=== PATIENT | female | born 1995 | race Caucasian/White ===

== ENCOUNTER 2016-08-01 08:40 | Emergency (ER) | payer OTHER ==
[2016-08-01] MEDS ORDERED: ONDANSETRON 4 MG ORAL DISINTEGRATING TAB (S0181) As Ordered ONE (09:09)
--- NOTE | 2016-08-01 09:53 | EDDOCDS ---
Nurse's Notes [facility] Name: Sandie Nelson Age: 20 yrs Sex: Female : 1995 Arrival Date: 08/01/2016 Time: 08:40 Bed PD Private MD: No Pcp Diagnosis: Nausea and vomiting-likely viral gastroenteritis Presentation: 08/01 08:43 Presenting complaint: Patient states: vomited this AM and 'feels horrible'. Adult kr3 Sepsis Screening: The patient does not have new or worsening altered mentation. Patient's respiratory rate is less than 22. Systolic blood pressure is greater than 100. Patient has a qSOFA score of 0- Negative Sepsis Screen. Suicide/Homicide risk assessment- the patient denies having any suicidal and/or homicidal ideations and does not present with any other emotional, behavioral or mental health complaints. Status: The patient is a dependent. Transition of care: patient was not received from another setting of care. 08:43 Acuity: ELISABET Level 3 kr3 08:43 Method Of Arrival: Walkin/Carried/Asstd kr3 Triage Assessment: 08:48 General: Appears in no apparent distress, comfortable, Behavior is cooperative. Pain: kr3 Location: abdomen Pain currently is 5 out of 10 on a pain scale. Pt Declines HIV testing. Neurological: Level of Consciousness is awake, alert. Respiratory: Respiratory effort is even, unlabored. GI: Reports nausea, vomiting, Denies constipation, diarrhea. : No deficits noted. Derm: Skin is normal. 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 BCP once daily - PMHx: Allergies, Seasonal; - PSHx: Tonsillectomy; - Social history: Smoking status: Patient states was never smoker of tobacco. No barriers to communication noted, The patient speaks fluent Australian, Speaks appropriately for age. - Family history: Not pertinent. - : The pt / caregiver states he / she is not on anticoagulants. Home medication list is obtained from the patient. - Exposure Risk Screening:: None identified. Screenin:21 Screening information is obtained from the patient. Fall risk: No risks identified. kr3 Assistance ADL's: requires no assistance with activities of daily living. Abuse/DV Screen: The patient / caregiver reports he/she is: not in a situation that causes fear, pain or injury. Nutritional screening: No deficits noted. Advance Directives: Currently, there is no health care proxy. home support is adequate. Assessment: 09:20 Reassessment: Patient appears in no apparent distress at this time. Neurological: No kr3 deficits noted. Respiratory: Respiratory effort is even, unlabored. GI: Reports nausea. Derm: Skin is normal. 09:51 Reassessment: Patient states feeling better. Reassessment: tolerated apple juice. GI: kr3 Denies nausea. Vital Signs: 08:48 BP 127 / 87; Pulse 130; Resp 16; Temp 97(O); Pulse Ox 96% on R/A; Weight 63.5 kg (R); kr3 Height 5 ft. 1 in. (154.94 cm) (R); 09:51 BP 132 / 66; Pulse 104; Resp 16; Temp 97(O); Pulse Ox 97% on R/A; Pain 0/10; kr3 08:48 Body Mass Index 26.45 (63.50 kg, 154.94 cm) kr3 Vitals: 08:48 Log In Time: August 01, 2016 at 08:40. kr3 ED Course: 08:41 Patient visited by Valeriano Lynch Reg. mpb 08:41 Patient moved to Waiting mpb 08:42 No Pcp is Private Physician. mpb 08:43 Patient moved to Triage 2 kr3 08:44 Triage Initiated kr3 08:52 [facility]real [facility] ar2 08:52 Scott Mcdonald MD is Attending Physician. ar2 08:52 Patient visited by Yung Villarreal PA-C. ar2 09:08 -Influenza A&B Rapid Antigen - Nose Sent. kr3 09:15 Patient moved to PD kr3 09:21 The patient / caregiver is instructed regarding the plan of care and ED course. kr3 Accompanied by Family Member, Patient has correct armband on for positive identification. 09:21 No IV's were initiated during this patient's visit. No procedures done that require kr3 assistance. 09:23 Patient visited by Angélica Ward RN. kr3 09:25 [facility] Payment Agreement was scanned into [employer] and attached to record. mpb 09:30 Patient name changed from Sandie\S\Uziel\S\Joe\S\ to Sandie\S\Anne\S\Joe. EDMS 09:36 Patient name changed from Sandie\S\Anne\S\Joe\S\ to Sandie\S\Anne\S\Leslie. EDMS 09:44 Gerardo [facility] [place] Referral Physician. ar2 Administered Medications: 09:10 Drug: Ondansetron ODT 4 mg [ondansetron 4 mg disintegrating tablet (1 tabs)] Route: PO; kr3 09:50 Follow up: Response: Nausea is resolved kr3 Point of Care Testing: Urine : 09:20 hCG Reading: Negative; Control Reading: Positive; kr3 Ranges: Order Results: Lab Order: -Influenza A&B Rapid Antigen - Nose; SPEC'M 08/01/16 09:07 Test: INFLUENZA A RAPID SCR by ICA; Value: INFLUENZA A RESULTS NEGATIVE; Status: F Test: INFLUENZA A RAPID SCR by ICA; Value: Comments:; Status: F Test: INFLUENZA B RAPID SCR by ICA; Value: INFLUENZA B RESULTS NEGATIVE; Status: F Test Note: ; The Influenza test is a direct rapid immunoassay for the qualitative detection of Influenza viral antigen. Cell culture (Viral Culture) testing should be considered to confirm NEGATIVE results and to assist in detecting other viruses that can provide similar clinical symptoms. Please contact the lab within 24 hours ([phone]) if confirmatory testing is desired. Outcome: 09:21 No special radiology studies were completed. kr3 09:45 Discharge ordered by Provider. ar2 09:50 Discharge Assessment: patient administered narcotics - no. The following High Risk kr3 Discharge criteria are identified: None. Discharged to home ambulatory. Condition: improved. Discharge instructions given to patient, Instructed on discharge instructions, follow up and referral plans. medication usage, Demonstrated understanding of instructions, medications, Pt was receptive of discharge instructions/ teaching. Prescriptions given X 1. Property sent home with patient. 09:52 Patient left the ED. kr3 Signatures: Dispatcher [employer] EDAngélica Curtis RN RN kr3 Yung Villarreal, ABEBE PA-C ar2 Valeriano Lynch, Reg Reg mpb MTDD
--- NOTE | 2016-08-01 09:53 | EDDOCDS ---
Physician Documentation [facility] Name: Sandie Nelson Age: 20 yrs Sex: Female : 1995 Arrival Date: 08/01/2016 Time: 08:40 Bed PD Private MD: No Pcp Disposition: 08/01/16 09:45 Discharged to Home/Self Care. Impression: Nausea and vomiting - likely viral gastroenteritis. - Condition is Stable. - Discharge Instructions: Nausea and Vomiting, Viral Gastroenteritis. - Prescriptions for ZOFRAN ODT 4 mg - dissolve 1 tablet by ORAL route 4 times per day As needed do not chew, do not swallow whole; 10 tablet. - Medication Reconciliation, Local Pharmacy Hours form. - Follow up: Emergency Department; When: As needed; Reason: Fever > 102F, Worsening of conditions. Follow up: [facility]; When: As needed; Reason: Recheck today's complaints. - Problem is new. - Symptoms have improved. Historical: - Allergies: gluten intolerance; - Home Meds: 1. BCP once daily - PMHx: Allergies, Seasonal; - PSHx: Tonsillectomy; - Social history: Smoking status: Patient states was never smoker of tobacco. No barriers to communication noted, The patient speaks fluent Macedonian, Speaks appropriately for age. - Family history: Not pertinent. - : The pt / caregiver states he / she is not on anticoagulants. Home medication list is obtained from the patient. - Exposure Risk Screening:: None identified. 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 1 in. (154.94 cm) (R); 09:51 BP 132 / 66; Pulse 104; Resp 16; Temp 97(O); Pulse Ox 97% on R/A; Pain 0/10; kr3 08:48 Body Mass Index 26.45 (63.50 kg, 154.94 cm) kr3 MDM: 09:03 Ondansetron ODT Oral Disintegrating Tablet 4 mg PO once ordered. ar2 09:03 Fluid Challenge ordered. ar2 09:03 UCG by Nursing ordered. ar2 09:04 -Influenza A&B Rapid Antigen - Nose Ordered. EDMS 09:11 Financial registration complete. mpb 09:25 [facility] Payment Agreement was scanned into [employer] and attached to record. mpb 09:41 -Influenza A&B Rapid Antigen - Nose Reviewed. ar2 Point of Care Testing: Urine : 09:20 hCG Reading: Negative; Control Reading: Positive; kr3 Ranges: Administered Medications: 09:10 Drug: Ondansetron ODT 4 mg [ondansetron 4 mg disintegrating tablet (1 tabs)] Route: PO; kr3 09:50 Follow up: Response: Nausea is resolved kr3 Signatures: Dispatcher [employer] EDMS Angélica Ward RN RN kr3 Yung Villarreal PA-C PA-C ar2 Valeriano Lynch, Jake Reg mpb The chart was reviewed and I authenticate all verbal orders and agree with the evaluation and treatment provided.Attachments: 09:25 [facility] Payment Agreement mpb MTDD
--- NOTE | 2016-08-03 10:53 | EDDOCDS ---
Physician Documentation [facility] Name: Sandie Nelson Age: 20 yrs Sex: Female : 1995 Arrival Date: 08/01/2016 Time: 08:40 Bed PD Private MD: No Pcp Disposition: 08/01/16 09:45 Discharged to Home/Self Care. Impression: Nausea and vomiting - likely viral gastroenteritis. - Condition is Stable. - Discharge Instructions: Nausea and Vomiting, Viral Gastroenteritis. - Prescriptions for ZOFRAN ODT 4 mg - dissolve 1 tablet by ORAL route 4 times per day As needed do not chew, do not swallow whole; 10 tablet. - Medication Reconciliation, Local Pharmacy Hours form. - Follow up: Emergency Department; When: As needed; Reason: Fever > 102F, Worsening of conditions. Follow up: [facility]; When: As needed; Reason: Recheck today's complaints. - Problem is new. - Symptoms have improved. Historical: - Allergies: gluten intolerance; - Home Meds: 1. BCP once daily - PMHx: Allergies, Seasonal; - PSHx: Tonsillectomy; - Social history: Smoking status: Patient states was never smoker of tobacco. No barriers to communication noted, The patient speaks fluent Chinese, Speaks appropriately for age. - Family history: Not pertinent. - : The pt / caregiver states he / she is not on anticoagulants. Home medication list is obtained from the patient. - Exposure Risk Screening:: None identified. 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 1 in. (154.94 cm) (R); 09:51 BP 132 / 66; Pulse 104; Resp 16; Temp 97(O); Pulse Ox 97% on R/A; Pain 0/10; kr3 08:48 Body Mass Index 26.45 (63.50 kg, 154.94 cm) kr3 MDM: 09:03 Ondansetron ODT Oral Disintegrating Tablet 4 mg PO once ordered. ar2 09:03 Fluid Challenge ordered. ar2 09:03 UCG by Nursing ordered. ar2 09:04 -Influenza A&B Rapid Antigen - Nose Ordered. EDMS 09:11 Financial registration complete. mpb 09:25 [facility] Payment Agreement was scanned into [employer] and attached to record. mpb 09:41 -Influenza A&B Rapid Antigen - Nose Reviewed. ar2 19:58 T-Sheet-- Draft Copy was scanned into [employer] and attached to record. klr Point of Care Testing: Urine : 09:20 hCG Reading: Negative; Control Reading: Positive; kr3 Ranges: Administered Medications: 09:10 Drug: Ondansetron ODT 4 mg [ondansetron 4 mg disintegrating tablet (1 tabs)] Route: PO; kr3 09:50 Follow up: Response: Nausea is resolved kr3 Signatures: Dispatcher [employer] Angélica Tristan RN RN kr3 Yung Villarreal PA-C PA-C ar2 Valeriano Lynch, Reg Reg mpb Graciela Godoy klr The chart was reviewed and I authenticate all verbal orders and agree with the evaluation and treatment provided.Attachments: 09:25 [facility] Payment Agreement mpb 19:58 T-Sheet-- Draft Copy klr Chart Complete MTDD
--- NOTE | 2016-08-03 10:53 | EDDOCDS ---
Nurse's Notes [facility] Name: Sandie Nelson Age: 20 yrs Sex: Female : 1995 Arrival Date: 08/01/2016 Time: 08:40 Bed PD Private MD: No Pcp Diagnosis: Nausea and vomiting-likely viral gastroenteritis Presentation: 08/01 08:43 Presenting complaint: Patient states: vomited this AM and 'feels horrible'. Adult kr3 Sepsis Screening: The patient does not have new or worsening altered mentation. Patient's respiratory rate is less than 22. Systolic blood pressure is greater than 100. Patient has a qSOFA score of 0- Negative Sepsis Screen. Suicide/Homicide risk assessment- the patient denies having any suicidal and/or homicidal ideations and does not present with any other emotional, behavioral or mental health complaints. Status: The patient is a dependent. Transition of care: patient was not received from another setting of care. 08:43 Acuity: ELISABET Level 3 kr3 08:43 Method Of Arrival: Walkin/Carried/Asstd kr3 Triage Assessment: 08:48 General: Appears in no apparent distress, comfortable, Behavior is cooperative. Pain: kr3 Location: abdomen Pain currently is 5 out of 10 on a pain scale. Pt Declines HIV testing. Neurological: Level of Consciousness is awake, alert. Respiratory: Respiratory effort is even, unlabored. GI: Reports nausea, vomiting, Denies constipation, diarrhea. : No deficits noted. Derm: Skin is normal. 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 BCP once daily - PMHx: Allergies, Seasonal; - PSHx: Tonsillectomy; - Social history: Smoking status: Patient states was never smoker of tobacco. No barriers to communication noted, The patient speaks fluent [place]inean, Speaks appropriately for age. - Family history: Not pertinent. - : The pt / caregiver states he / she is not on anticoagulants. Home medication list is obtained from the patient. - Exposure Risk Screening:: None identified. Screenin:21 Screening information is obtained from the patient. Fall risk: No risks identified. kr3 Assistance ADL's: requires no assistance with activities of daily living. Abuse/DV Screen: The patient / caregiver reports he/she is: not in a situation that causes fear, pain or injury. Nutritional screening: No deficits noted. Advance Directives: Currently, there is no health care proxy. home support is adequate. Assessment: 09:20 Reassessment: Patient appears in no apparent distress at this time. Neurological: No kr3 deficits noted. Respiratory: Respiratory effort is even, unlabored. GI: Reports nausea. Derm: Skin is normal. 09:51 Reassessment: Patient states feeling better. Reassessment: tolerated apple juice. GI: kr3 Denies nausea. Vital Signs: 08:48 BP 127 / 87; Pulse 130; Resp 16; Temp 97(O); Pulse Ox 96% on R/A; Weight 63.5 kg (R); kr3 Height 5 ft. 1 in. (154.94 cm) (R); 09:51 BP 132 / 66; Pulse 104; Resp 16; Temp 97(O); Pulse Ox 97% on R/A; Pain 0/10; kr3 08:48 Body Mass Index 26.45 (63.50 kg, 154.94 cm) kr3 Vitals: 08:48 Log In Time: August 01, 2016 at 08:40. kr3 ED Course: 08:41 Patient visited by Valeriano Lynch Reg. mpb 08:41 Patient moved to Waiting mpb 08:42 No Pcp is Private Physician. mpb 08:43 Patient moved to Triage 2 kr3 08:44 Triage Initiated kr3 08:52 [facility] Vill[facility]real [facility]-C [facility]. ar2 08:52 Scott Mcdonald MD is Attending Physician. ar2 08:52 Patient visited by Yung Villarreal PA-C. ar2 09:08 -Influenza A&B Rapid Antigen - Nose Sent. kr3 09:15 Patient moved to PD kr3 09:21 The patient / caregiver is instructed regarding the plan of care and ED course. kr3 Accompanied by Family Member, Patient has correct armband on for positive identification. 09:21 No IV's were initiated during this patient's visit. No procedures done that require kr3 assistance. 09:23 Patient visited by Angélica Ward RN. kr3 09:25 [facility] Payment Agreement was scanned into [employer] and attached to record. mpb 09:30 Patient name changed from Sandie\S\Uziel\S\Joe\S\ to Sandie\S\Anne\S\Joe. EDMS 09:36 Patient name changed from Sandie\S\Anne\S\Joe\S\ to Sandie\S\Anne\S\Leslie. EDMS 09:44 Gerardo [facility] [place] Referral Physician. ar2 19:58 T-Sheet-- Draft Copy was scanned into [employer] and attached to record. klr Administered Medications: 09:10 Drug: Ondansetron ODT 4 mg [ondansetron 4 mg disintegrating tablet (1 tabs)] Route: PO; kr3 09:50 Follow up: Response: Nausea is resolved kr3 Point of Care Testing: Urine : 09:20 hCG Reading: Negative; Control Reading: Positive; kr3 Ranges: Order Results: Lab Order: -Influenza A&B Rapid Antigen - Nose; SPEC'M 08/01/16 09:07 Test: INFLUENZA A RAPID SCR by ICA; Value: INFLUENZA A RESULTS NEGATIVE; Status: F Test: INFLUENZA A RAPID SCR by ICA; Value: Comments:; Status: F Test: INFLUENZA B RAPID SCR by ICA; Value: INFLUENZA B RESULTS NEGATIVE; Status: F Test Note: ; The Influenza test is a direct rapid immunoassay for the qualitative detection of Influenza viral antigen. Cell culture (Viral Culture) testing should be considered to confirm NEGATIVE results and to assist in detecting other viruses that can provide similar clinical symptoms. Please contact the lab within 24 hours ([phone]) if confirmatory testing is desired. Outcome: 09:21 No special radiology studies were completed. kr3 09:45 Discharge ordered by Provider. ar2 09:50 Discharge Assessment: patient administered narcotics - no. The following High Risk kr3 Discharge criteria are identified: None. Discharged to home ambulatory. Condition: improved. Discharge instructions given to patient, Instructed on discharge instructions, follow up and referral plans. medication usage, Demonstrated understanding of instructions, medications, Pt was receptive of discharge instructions/ teaching. Prescriptions given X 1. Property sent home with patient. 09:52 Patient left the ED. kr3 Signatures: Dispatcher [facility] Angélica Ward RN RN kr3 Yung Villarreal PA-C PARakesh ar2 Valeriano Lynch, Reg Reg mpb Graciela Godoy Chart Complete MTDD
--- NOTE | 2016-08-03 10:53 | EDDOCDS ---
Physician Documentation [facility] Name: Sandie Nelson Age: 20 yrs Sex: Female : 1995 Arrival Date: 08/01/2016 Time: 08:40 Bed PD Private MD: No Pcp Disposition: 08/01/16 09:45 Discharged to Home/Self Care. Impression: Nausea and vomiting - likely viral gastroenteritis. - Condition is Stable. - Discharge Instructions: Nausea and Vomiting, Viral Gastroenteritis. - Prescriptions for ZOFRAN ODT 4 mg - dissolve 1 tablet by ORAL route 4 times per day As needed do not chew, do not swallow whole; 10 tablet. - Medication Reconciliation, Local Pharmacy Hours form. - Follow up: Emergency Department; When: As needed; Reason: Fever > 102F, Worsening of conditions. Follow up: [facility] Carrillo; When: As needed; Reason: Recheck today's complaints. - Problem is new. - Symptoms have improved. Historical: - Allergies: gluten intolerance; - Home Meds: 1. BCP once daily - PMHx: Allergies, Seasonal; - PSHx: Tonsillectomy; - Social history: Smoking status: Patient states was never smoker of tobacco. No barriers to communication noted, The patient speaks fluent Luxembourgish, Speaks appropriately for age. - Family history: Not pertinent. - : The pt / caregiver states he / she is not on anticoagulants. Home medication list is obtained from the patient. - Exposure Risk Screening:: None identified. 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 1 in. (154.94 cm) (R); 09:51 BP 132 / 66; Pulse 104; Resp 16; Temp 97(O); Pulse Ox 97% on R/A; Pain 0/10; kr3 08:48 Body Mass Index 26.45 (63.50 kg, 154.94 cm) kr3 MDM: 09:03 Ondansetron ODT Oral Disintegrating Tablet 4 mg PO once ordered. ar2 09:03 Fluid Challenge ordered. ar2 09:03 UCG by Nursing ordered. ar2 09:04 -Influenza A&B Rapid Antigen - Nose Ordered. EDMS 09:11 Financial registration complete. mpb 09:25 [facility] Payment Agreement was scanned into [employer] and attached to record. mpb 09:41 -Influenza A&B Rapid Antigen - Nose Reviewed. ar2 19:58 T-Sheet-- Draft Copy was scanned into [employer] and attached to record. klr Point of Care Testing: Urine : 09:20 hCG Reading: Negative; Control Reading: Positive; kr3 Ranges: Administered Medications: 09:10 Drug: Ondansetron ODT 4 mg [ondansetron 4 mg disintegrating tablet (1 tabs)] Route: PO; kr3 09:50 Follow up: Response: Nausea is resolved kr3 Signatures: Dispatcher [employer] Angélica Tristan RN RN kr3 Yung Villarreal PA-C PA-C ar2 Valeriano Lynch, Reg Reg mpb Graciela Godoy klr The chart was reviewed and I authenticate all verbal orders and agree with the evaluation and treatment provided.Attachments: 09:25 [facility] Payment Agreement mpb 19:58 T-Sheet-- Draft Copy klr Chart Complete MTDD
== END 2016-08-01 09:52 | disposition home or self-care (01) ==
LOC: M ED 08:40
DX: R11.2 Nausea with vomiting, unspecified (principal); K90.41 Non-celiac gluten sensitivity; J30.2 Other seasonal allergic rhinitis

== ENCOUNTER → 2016-11-25 | Outpatient (REF) | payer OTHER | LOC: M LAB REF 09:08 | PROVIDERS: ATTEND Physician Assistant | DX: J02.9 Acute pharyngitis, unspecified (principal) ==

== ENCOUNTER 2021-02-19 18:09 | Outpatient (CLI) | payer SELFPAY ==
[~2021-02-19] VITALS: Ht 154.9 cm; Wt 88.1 kg
[2021-02-19] MEDS ORDERED: PRENTAB9 PO (18:33)
[2021-02-19] MEDS ORDERED: FOLI400T13 PO (18:33)
[2021-02-19] MEDS ORDERED: HOME MED LIST COMPLETE! XX SCH (18:35)
[2021-02-19 18:54] LABS: HEMATOCRIT 34.2 % (36.0-47.0); HEMOGLOBIN 11.4 g/dl (12.0-15.5); MEAN CORPUSCULAR HEMOGLOBIN 29.5 pg (27.0-33.0); MEAN CORPUSCULAR HGB CONC 33.3 g/dl (32.0-36.5); MEAN CORPUSCULAR VOLUME 88.6 fl (80.0-96.0); PLATELET COUNT, AUTOMATED 188 10^3/uL (150-450); RED BLOOD COUNT 3.86 10^6/uL (4.00-5.40); WHITE BLOOD COUNT 11.2 10^3/uL (4.0-10.0)
[2021-02-19 18:55] VITALS: BP 109/62
[2021-02-19 20:20] VITALS: BP 116/55
--- NOTE | 2021-02-19 21:29 | IPNPDOC ---
Text Note Date of Service Item Value Date Time White Blood Count 11.2 10^3/uL H 02/19/211839 Red Blood Count 3.86 10^6/uL L 02/19/211839 Hemoglobin 11.4 g/dl L 02/19/211839 Hematocrit 34.2 % L 02/19/211839 Mean Corpuscular Volume 88.6 fl 02/19/211839 Mean Corpuscular Hemoglobin 29.5 pg 02/19/211839 Mean Corpuscular Hemoglobin Concent 33.3 g/dl 02/19/211839 Red Cell Distribution Width 12.5 % 02/19/211839 Platelet Count 188 10^3/uL 02/19/211839 The patient was seen on 02/19/21. NOTE 1999 PATIENT TRIPPED OVER MAT AT WORK DURING LOCK DOWN NO VAGINAL BLEEDING NO VAGINAL DISCHARGE MOVEMENT FELT. LMP 07/30/2020 EDC BY US 11.6 WEEKS 06/03/2021. RISK FACTORS GBS POSITIVE BMI 32.50 RH NEGATIVE EXAM NO DISTRESS SF HEIGHT 20 CM NON TENDER UTERUS 4 QUADRANT BOWEL SOUNDS . NORMOCEPHALIC AUTOMATIC FULL RANGE OF MOTION PUPILS EQUAL AND REACTIVE TO LIGHT HEART RATE NORMAL NO MURMURS CHEST CLEAR TO BASES NO RHALS NO RHONCHI. NO CVA TENDERNESS NO RASHES LESIONS OR PURITIS SKIN CLEAR NO BRUISES KOWALSKI OR TRAUMA NOTED. NO URGENCY NO FREQUENCY NO NAUSEA VOMITING DIARRHEA CONSTIPATION . NST ACTIVE FOR 21 WEEKS B-K NEGATIVE CBC NORMAL DISCHARGED UNDELIVERED PRECAUTIONS GIVEN VS,Fishbone, I+O VS, Fishbone, I+O Laboratory Tests 02/19/21 18:40 Vital Signs Date Time Temp Pulse Resp B/P (MAP) Pulse Ox O2 Delivery O2 Flow Rate FiO2 02/19/21 20:20 98.1 98 16 116/55 (75) Sen Mills MD Feb 19, 2021 21:23
== END 2021-02-19 21:08 | disposition home or self-care (01) ==
LOC: M LDO 18:09
PROVIDERS: ATTEND Obstetrics & Gynecology
DX: O9A.212 Injury, poisoning and certain other consequences of external causes complicating pregnancy, second trimester (principal); T14.8XXA Other injury of unspecified body region, initial encounter; W01.0XXA Fall on same level from slipping, tripping and stumbling without subsequent striking against object, initial encounter; Y92.9 Unspecified place or not applicable; Z3A.21 21 weeks gestation of pregnancy; O99.820 Streptococcus B carrier state complicating pregnancy; O99.212 Obesity complicating pregnancy, second trimester; E66.9 Obesity, unspecified
CPT/HCPCS: 36415; 59025; 85027; 85460; G0378; G0463

== ENCOUNTER 2021-04-21 13:08 | Outpatient (CLI) | payer OTHER, SELFPAY ==
[~2021-04-21] VITALS: Ht 154.9 cm; Wt 98.0 kg
[~2021-04-21 13:08] MED LIST: FOLI400T13 PO; PRENTAB9 PO
[2021-04-21 13:42] VITALS: BP 124/66
--- NOTE | 2021-04-21 16:40 | HPE ---
HISTORY AND PHYSICAL DATE OF ADMISSION: 04/21/2021 A 25-year-old 1, para 0, last menstrual period (LMP) 08/09/2020, estimated date of confinement (EDC) 06/03/2021 by early dating ultrasound at 7 weeks, 0 days. Presently she is at 33 weeks and 5 days. CHIEF COMPLAINT: She feels that she has ruptured membranes; however, she was not wearing a pad. Her underwear were dry. No vaginal bleeding. Her risk factors are body mass index (BMI) 32.5, she has a history of GBS positive in her urine, prophylactically treated. Her early 1-hour GGT was normal at 82. She had first dose of Leann 03/20/2021. On examination today, no acute distress. Symphysis fundus height is 24, vertex presenting, category 1 strip. She has occasional contractions or tightenings, which she is not feeling. Baseline is normal and moderate variability. Sterile speculum examination: Clean vagina. Os closed. Cervix is anterior. No pooling. No evidence of any leak in the vagina. Ultrasound performed showed vertex presenting. Amniotic fluid index (REINALDO) and three quadrants. Total of 12.50. The smallest vertical pocket was 2.61. Cardiac activity was noted. Limb motion was noted. Placenta is anterior. Back was anterior. No evidence to suggest decreased amniotic fluid. Patient was given instructions regarding precautions. Has an appointment with anni RODRÍGUEZ for her routine visit in 2 weeks' time. We did explain to her that she should maintain her passport with her at all times, because charts are not always available. Vital signs are pending. Blood pressure is presently 133/66, respirations 18, pulse 78, and afebrile. Patient was discharged undelivered.
== END 2021-04-21 14:45 | disposition home or self-care (01) ==
LOC: M LDO 13:08
PROVIDERS: ATTEND Obstetrics & Gynecology
DX: O47.03 False labor before 37 completed weeks of gestation, third trimester (principal); Z3A.33 33 weeks gestation of pregnancy; O99.213 Obesity complicating pregnancy, third trimester; E66.9 Obesity, unspecified
CPT/HCPCS: 59025; 76815; G0378; G0463

== ENCOUNTER 2021-05-13 08:11 | Outpatient (CLI) | payer OTHER, SELFPAY ==
[~2021-05-13] VITALS: Ht 154.9 cm; Wt 99.8 kg
[2021-05-13 08:39] VITALS: BP 135/96
[2021-05-13 08:55] VITALS: BP 127/72
[2021-05-13 09:10] VITALS: BP 125/72
[2021-05-13 09:25] VITALS: BP 123/68
[2021-05-13 09:39] VITALS: BP 130/71
--- NOTE | 2021-05-13 10:20 | IPNPDOC ---
Text Note Date of Service The patient was seen on 05/13/21. NOTE S: 25yo loida [id number] @37+0 presents to triage for SROM check. Denies bleeding, states occasional cramping and +FM. O: VSS RNST, FHR 130s, mod variability, +accel, -decel, Cat I, occasional contractions, mild to palpation. Speculum exam completed with increased leukorrhea noted in the vaginal vault, - pooling, -nitrazine, - ferning A: 37 wk gestation suspected condition not found P: Discharge to home with labor precaution, expressed understanding of reasons to return for care VS,Fishbone, I+O VS, Fishbone, I+O Vital Signs Date Time Temp Pulse Resp B/P (MAP) Pulse Ox O2 Delivery O2 Flow Rate FiO2 05/13/21 08:55 100 18 127/72 (90) 05/13/21 08:39 97.9 97 Room Air CHARI LIND CNM May 13, 2021 10:20
== END 2021-05-13 10:20 | disposition home or self-care (01) ==
LOC: M LDO 08:11
PROVIDERS: ATTEND Registered Nurse
DX: O26.893 Other specified pregnancy related conditions, third trimester (principal); Z3A.37 37 weeks gestation of pregnancy
CPT/HCPCS: 59025; G0378; G0463

== ENCOUNTER 2021-06-10 14:41 | Inpatient (IN) | payer OTHER, SELFPAY ==
[2021-06-10] VITALS (9 sets, daily range): BP systolic 115–154; BP diastolic 70–98
[~2021-06-10] VITALS: Ht 154.9 cm; Wt 100.2 kg
[2021-06-10] MEDS ORDERED: TUMS500C PO (15:29)
[2021-06-10] MEDS ORDERED: ACET-897 PO (15:29)
[2021-06-10] MEDS ORDERED: PENICILLIN G POTASSIUM IV 5 MU in D5W MINI-BAG PLUS 100 ML IV STA (16:59)
[2021-06-10] MEDS ORDERED: LIDOCAINE 1% MDV 20ML VIAL INFIL PRN (17:00)
[2021-06-10] MEDS ORDERED: OXYTOCIN INJ 10 UNITS/ML VIAL (J2590) IM PRN (17:00)
[2021-06-10] MEDS ORDERED: TRANEXAMIC ACID INJection 1,000 MG in NS 100 ML IV PRN (17:00)
[2021-06-10] MEDS ORDERED: ACETAMINOPHEN 500 MG TAB PO PRN (17:00)
[2021-06-10] MEDS ORDERED: OXYTOCIN DRIP 30 UNITS in IV 1 EA IV PRN ×4 (17:00)
[2021-06-10] MEDS ORDERED: CARBOPROST TROMETHAMINE 250 MCG/ML AMP IM PRN (17:00)
[2021-06-10 18:18] LABS: HEMOGLOBIN 13.5 g/dl (12.0-15.5); MEAN CORPUSCULAR HEMOGLOBIN 29.4 pg (27.0-33.0); MEAN CORPUSCULAR HGB CONC 32.9 g/dl (32.0-36.5); MEAN CORPUSCULAR VOLUME 89.3 fl (80.0-96.0); PLATELET COUNT, AUTOMATED 126 10^3/uL (150-450); RED BLOOD COUNT 4.59 10^6/uL (4.00-5.40); WHITE BLOOD COUNT 10.5 10^3/uL (4.0-10.0)
[2021-06-10] MEDS ORDERED: miSOPROStol 50MCG 1/2 TABLET PO ONE (18:30)
--- NOTE | 2021-06-10 18:34 | REP ---
INDICATION: evaluate growth and REINALDO, size greater than dates. COMPARISON: None. TECHNIQUE: Transabdominal scanning FINDINGS: Multiple ultrasonographic images of the gravid uterus shows a single living intrauterine gestation in the cephalic presentation. Doppler interrogation of the heart shows a heart rate of 140 beats per minute. The placenta is anterior and not low-lying. Secondary to the low position of the head an accurate cervical length measurement could not be obtained. Doppler interrogation of the umbilical artery shows an A\B ratio of 2.21. This is within the normal range. The subjective amniotic fluid volume is decreased. The calculated amniotic fluid index is 4.0 with an expected range of 7.0-19.4 BPD: 9.9 cm 40 weeks 5 days HC: 35.7 cm off chart HC: 37.6 cm 41 weeks 4 days FL: 7.6 cm 39 weeks 0 days The estimated weight is 4264 g which is greater than the 90th percentile. IMPRESSION: Single living intrauterine gestation as described above with an estimated gestational age of 40 weeks 1 day via composite criteria and an estimated date of delivery of 06/09/2021 by today's exam. There is a oligohydramnios. <Electronically signed by Seferino Mulligan > 06/10/21 [id number]
[2021-06-10 18:40] LABS: ALT/SGPT 66 U/L (12-78); BILIRUBIN,TOTAL 0.3 MG/DL (0.2-1.0); CREATININE FOR GFR 0.64 MG/DL (0.55-1.30); GLOMERULAR FILTRATION RATE > 60.0 (>60); LDH LACTATE DEHYDROGENASE 318 U/L (84-246); URIC ACID 5.3 MG/DL (2.6-6.0)
--- NOTE | 2021-06-10 19:33 | HPE ---
HISTORY AND PHYSICAL DATE OF ADMISSION: 06/10/2021 Linda is a 25-year-old 1, para 0 at 41 weeks gestation with an estimated date of confinement (EDC) of 06/03/2021 based on first-trimester ultrasound. She presents today to labor and delivery for induction of labor as a patient of [facility]. Of note, the patient's was discharged from the and failed to obtain alternate insurance, so today's scheduled induction will be placed under the care of [facility] for unregistered patients due to insurance changes. The patient did initiate her care at [facility] in the first trimester. Her course has been complicated by large for gestational age fetus and now today's diagnosis of oligohydramnios. OBSTETRIC HISTORY: Primag[place]ida. OBSTETRIC LABORATORY DATA: B positive, antibody screen negative, HIV negative, hepatitis B negative, RPR negative, rubella immune, Varicella immune. Pap was normal. Urine was positive for GBS. Gonorrhea and chlamydia negative. Gestational diabetic screening normal at 106. Cystic fibrosis carrier screening negative. Quad screen negative. MEDICAL HISTORY: Seasonal allergies. SURGERIES: Tonsillectomy. FAMILY HISTORY: Hypertension, diabetes, throat cancer, Parkinson's disease, and anxiety. SOCIAL HISTORY: The patient is . She is a nonsmoker. Denies alcohol and drug use. No history of sexual transmitted infections. Denies history of abuse, physical, sexual, and emotional. ALLERGIES: No known drug allergies. Allergies to grass and weeds, which cause congestion. CURRENT MEDICATIONS: vitamin, calcium, herbal supplements, and probiotic. OBJECTIVE: Temperature 97.8, pulse 88, respirations 18, blood pressure (BP) upon arrival 144/90, 136/88, 154/93. heart rate is 130 with moderate variability. Positive accelerations. Negative decelerations. Occasional contractions. Sterile vaginal exam: 2 cm dilated 80% effaced, -3 station, midposition, moderate texture, scant show with the exam. She did undergo an ultrasound today for estimated weight due to uterine size/date discrepancy. The fetus is in cephalic presentation with an estimated weight of 4264 grams, 9 pounds 6 ounces, greater than 90th percentile. Of note, there is oligohydramnios. The fluid is 4 cm. ASSESSMENT: Intrauterine at 41 weeks, heart rate category 1, post term . PLAN: Admit the patient to labor and delivery. Routine laboratories with the addition of a pre-eclamptic profile and spot urine. Out of bed ad shira right now. Regular diet. I plan to give one dose of misoprostol and then start IV Pitocin for labor induction. The patient is planning on an epidural when she is uncomfortable with her labor. I reviewed risks, benefits, and alternatives. The patient and her have had all of their questions answered. I reviewed the potential for section due to intolerance of labor, arrest of dilation, arrest of descent, and other indicated reasons. The patient has been verbally consented for emergency surgery and blood products if they are necessary. I anticipate labor. DERRICK
[2021-06-10] MEDS ORDERED: OXYTOCIN DRIP 30 UNITS in IV 1 EA IV SCH (20:10)
[2021-06-10 20:39] LABS: CREATININE,RANDOM URINE 81.3 MG/DL; TOTAL PROTEIN,RANDOM URINE 25.2 MG/DL (0.0-12.0)
[2021-06-10] MEDS ORDERED: BUTORPHANOL 2 MG/ML INJ (J0595) IV ONE (23:15)
[2021-06-10] MEDS ORDERED: PROMETHAZINE INJ 25 MG/ML VIAL (J2550) IV ONE (23:15)
[2021-06-11] VITALS (61 sets, daily range): BP systolic 117–160; BP diastolic 61–95
[2021-06-11] MEDS: LR 1,000 ML IV SCH ×2 (00:08→10:25)
[2021-06-11] MEDS ORDERED: FENTANYL 2MCG/ML ROPIVACAINE 0.2% IN 0.9% NACL 100ML IVBAG As Ordered ONE (03:43)
[2021-06-11] MEDS ORDERED: EPIDURAL COMMENT XX SCH (04:25)
[2021-06-11] MEDS ORDERED: EPIDURAL/PCA KEYS XX PRN (04:25)
[2021-06-11] MEDS ORDERED: ePHEDrine SULFATE 25 MG/5 ML(5MG/ML) SYRINGE IV PRN (04:25)
[2021-06-11] MEDS ORDERED: diphenhydrAMINE 50MG/ML VIAL (J1200) IV PRN ×2 (04:25→13:50)
[2021-06-11] MEDS ORDERED: LACTATED RINGER'S 1000 ML IV PRN (04:25)
[2021-06-11] MEDS ORDERED: ONDANSETRON 4MG/2ML VIAL IV PRN ×4 (04:25→16:05)
[2021-06-11] MEDS ORDERED: REFRIGERATOR IV KEYS XX PRN (04:25)
[2021-06-11] MEDS ORDERED: NALOXONE INJ 0.4MG/1ML VIAL (J2310 PER 1MG) IV PRN ×3 (04:25→13:50)
[2021-06-11] MEDS: PENICILLIN G POTASSIUM IV 2.5 MU in IV 1 EA IV SCH ×2 (05:47→09:37)
[2021-06-11] MEDS: FENTANYL/ROPIVACAINE/NACL BAG 100 ML EPIDURAL SCH ×2 (05:48→09:37)
[2021-06-11] MEDS ORDERED: ceFAZolin 2 GM/D5W 50 ML IV BAG (J0690 PER 500MG) As Ordered ONE (13:13)
--- NOTE | 2021-06-11 13:27 | IPNPDOC ---
Obstetrical Progress Note Date of Service Jun 11, 2021 Subjective Patient appears to be uncomfortable despite epidural. She has been involuntary pushing. She was previously checked and was noted to be 5 cm. She was reexamined and was unchanged after several hours. I discussed primary section for arrest of dilation versus proceeding with induction of labor and reviewed the risk of macrosomia associated with vaginal delivery. After consultation patient desires to proceed with section Objective Vital Signs Date Time Temp Pulse Resp B/P (MAP) Pulse Ox O2 Delivery O2 Flow Rate FiO2 06/11/21 10:32 106 144/81 (102) 06/11/21 07:21 98.4 06/11/21 05:00 18 Assessment Variability: Moderate Heart Rate Tracing: Category I Tocometer Contractions: Yes Frequency: regular Sterile Vaginal Examination Dilation: 5 cm Effacement (%): 90% Station: -2 Cervical Consistency: Soft Cervical Position: Anterior Postion/Presentation: Cephalic presentation Assessment and Plan Age: 25 Status: Reassuring Anticipate: Section ANTONI YUAN MD. Jun 11, 2021 13:27
[2021-06-11] MEDS ORDERED: ONDANSETRON 4MG/2ML VIAL As Ordered ONE (13:44)
[2021-06-11] MEDS ORDERED: MORPHINE PRES-FREE INJ 10 MG/10 ML VIAL (J2274) As Ordered ONE (13:44)
[2021-06-11] MEDS ORDERED: LIDOCAINE PRES-FREE 2% 10ML AMP As Ordered ONE (13:44)
[2021-06-11] MEDS ORDERED: METOCLOPRAMIDE INJ 10MG/2ML VIAL (J2765 PER 1) IV PRN (13:50)
[2021-06-11] MEDS ORDERED: NALBUPHINE HCL 10 MG/ML AMP (J2300) IV PRN (13:50)
[2021-06-11] MEDS ORDERED: ceFAZolin SOD 2 GM in IV 1 EA IV ONE (14:00)
[2021-06-11] MEDS ORDERED: AZITHROMYCIN INJ 500 MG, VIAL MATE ADAPTER 1 EACH in NS 250 ML IV ONE (14:00)
[2021-06-11] MEDS ORDERED: ACETAMINOPHEN 1000MG 100ML IV BTL (OFIRMEV) (J0131 PER 10MG) As Ordered ONE (14:00)
[2021-06-11] MEDS ORDERED: BICITRA 30ML SOLN UDC PO ONE (14:00)
[2021-06-11] MEDS ORDERED: OXYTOCIN 30 UNITS IN 0.9% NaCl 500ML IV BAG (J2590) As Ordered ONE ×2 (14:02→16:14)
[2021-06-11] MEDS ORDERED: dexameTHASONE 4 MG/ML 1ML VIAL (J1100 PER 1MG) As Ordered ONE (14:55)
[2021-06-11] MEDS ORDERED: KETOROLAC 60MG 2ML VIAL As Ordered ONE (14:55)
[2021-06-11] MEDS ORDERED: KETOROLAC 30 MG/ML 1ML VIAL IV PRN (14:57)
[2021-06-11] MEDS ORDERED: OXYTOCIN DRIP 30 UNITS in IV 1 EA IV SCH (15:20)
[2021-06-11] MEDS ORDERED: SIMETHICONE 80MG CHEW TAB PO PRN (15:20)
[2021-06-11] MEDS ORDERED: PERCOCET 5MG/325MG TAB PO PRN ×2 (15:20→16:05)
[2021-06-11] MEDS ORDERED: LR 1,000 ML IV SCH ×2 (15:20→16:05)
[2021-06-11] MEDS ORDERED: MEASLES,MUMPS,RUBELLA VACCINE INJ (MMR-II) (90707) SC SCH (15:20)
[2021-06-11] MEDS ORDERED: RHOGAM 300 MCG (1500 IU) INJ (J2790) IM SCH (15:20)
[2021-06-11] MEDS ORDERED: MOM 30ML SUSPENSION UDC PO PRN (15:20)
--- NOTE | 2021-06-11 15:26 | ROOPDOC ---
[facility] Report Of Operation Report of Operation DATE OF PROCEDURE: 06/11/21 SURGEON: Mckenzie Fernando M.D. CHEMICAL RESEARCH ENGINEER: None PROCEDURE: Primary section PREOPERATIVE DIAGNOSIS: 1. Arrest of dilation POSTOPERATIVE DIAGNOSIS: 1. Arrest of dilation ANESTHESIA: Spinal ESTIMATED BLOOD LOSS: 500 mL URINE OUTPUT: 25 mL INTRAVENOUS FLUIDS: 800 mL of lactated Ringer's solution PREOPERATIVE ANTIBIOTICS:. 2 g of Ancef and 500 azithromycin OPERATIVE FINDINGS: Liveborn male , Apgars 8 and 9. Weight 4040 g or 8 pounds 15 ounces SPECIMENS: None DESCRIPTION OF PROCEDURE: After informed consent was obtained and written consent was reviewed. The patient was brought to the operating room where spinal anesthesia was placed. She was then placed in the supine position with a left lateral tilt. Canseco catheter was placed and to gravity. Patient was then prepped and draped in the normal sterile fashion. A timeout operating room was performed identifying the patient, procedure be performed as well as drug allergies. Anesthesia was tested and deemed to be adequate. Pfannenstiel skin incision was made and this was carried down to the underlying rectus fascia. The fascia was then scored and this incision was extended bilaterally. The fascia was then dissected off the underlying rectus muscle superiorly and inferiorly. The rectus muscles were then in the midline. The peritoneum is then entered. Vesicouterine peritoneum was then tented and excised and a bladder flap was created. Mobius retractor was then placed. Next, a curvilinear incision was then made in the lower uterine segment. The head was brought to the level of the incision atraumatically and delivered along the shoulders and corpus. The cord was clamped x2. The was brought over to the warmer with a good cry. Placenta was drained and delivered grossly intact. The uterus was cleared of all clots and debris and the uterine incision was then closed using 0 Vicryl in a running locking fashion followed by a second layer of 0 Vicryl in a running nonlocking fashion for imbrication. The abdomen suctioned. Surgical sites re inspected and noted be hemostatic. The retractor was then removed. The anterior peritoneum was then reapproximated with 3-0 Vicryl. The rectus muscles were reapproximated 3-0 Vicryl. The fascia was then closed using 0 Vicryl in a running nonlocking fashion. The subcutaneous tissues was then irrigated and suctioned. Subcutaneous tissue was reapproximated using 3-0 Vicryl. Several finch bdermal stitch is placed using 3-0 Vicryl and the skin was closed with 4-0 Monocryl and subcuticular fashion. This incision was then cleaned and dried and was dressed. The patient was then taken to recovery in stable condition. All counts were correct. The couple has decided to name the Paul. MCKENZIE FERNADNO MD. Jun 11, 2021 15:26
[2021-06-11] MEDS ORDERED: fentaNYL 100 MCG/2 ML INJECTION (J3010) IV PRN (16:05)
[2021-06-11] MEDS: KETOROLAC 30 MG/ML 1ML VIAL IV SCH (20:45)
[2021-06-11] MEDS: DOCUSATE SODIUM 100MG CAPSULE PO SCH (20:45)
[2021-06-12 02:38] VITALS: BP 112/60
[2021-06-12] MEDS: KETOROLAC 30 MG/ML 1ML VIAL IV SCH ×2 (03:05→08:16)
[2021-06-12 06:26] VITALS: BP 117/60
[2021-06-12 08:10] LABS: HEMATOCRIT 33.7 % (36.0-47.0); HEMOGLOBIN 10.8 g/dl (12.0-15.5); MEAN CORPUSCULAR HEMOGLOBIN 30.3 pg (27.0-33.0); MEAN CORPUSCULAR VOLUME 94.4 fl (80.0-96.0); RED BLOOD COUNT 3.57 10^6/uL (4.00-5.40); WHITE BLOOD COUNT 11.3 10^3/uL (4.0-10.0)
[2021-06-12 08:14] LABS: PLATELET COUNT, AUTOMATED 96 10^3/uL (150-450)
[2021-06-12] MEDS: PRENATAL VITAMINS CHEWABLE TABLET PO SCH (08:15)
[2021-06-12] MEDS: DOCUSATE SODIUM 100MG CAPSULE PO SCH ×2 (08:16→21:56)
[2021-06-12] MEDS ORDERED: PERCOCET PO ×2 (08:19→08:23)
[2021-06-12] MEDS ORDERED: IBUP80TA PO ×2 (08:19→08:23)
--- NOTE | 2021-06-12 08:45 | IPNPDOC ---
Text Note Date of Service The patient was seen on 06/12/21. NOTE PO #1 Feels well. Adequate pain management. Due to void. Passing flatus VSS, afebrile, normotensive Plt count 96 Breasts soft, Fundus firm, NT Dressing intact. Small amount old drainage Lochia rubra light without odor PO #1, thrombocytopenia PreE panel ordered. Repeat CBC this pm VS,Fishbone, I+O VS, Fishbone, I+O Laboratory Tests 06/12/21 07:50 Vital Signs Date Time Temp Pulse Resp B/P (MAP) Pulse Ox O2 Delivery O2 Flow Rate FiO2 06/12/21 06:26 97.4 90 18 117/60 (79) 99 Room Air I&O- Last 24 Hours up to 6 AM 06/12/21 06:00 Intake Total 847 ml Output Total 1650 ml Balance -803 ml Aisha Pereira CNM Jun 12, 2021 08:45
[2021-06-12 10:08] VITALS: BP 135/76
[2021-06-12 10:43] LABS: ALT/SGPT 41 U/L (12-78); BILIRUBIN,TOTAL 0.3 MG/DL (0.2-1.0); CREATININE FOR GFR 0.62 MG/DL (0.55-1.30); GLOMERULAR FILTRATION RATE > 60.0 (>60); LDH LACTATE DEHYDROGENASE 260 U/L (84-246); URIC ACID 5.9 MG/DL (2.6-6.0)
[2021-06-12 14:00] VITALS: BP 132/72
[2021-06-12 14:04] LABS: HEMATOCRIT 34.4 % (36.0-47.0); HEMOGLOBIN 10.9 g/dl (12.0-15.5); MEAN CORPUSCULAR HEMOGLOBIN 30.1 pg (27.0-33.0); MEAN CORPUSCULAR HGB CONC 31.7 g/dl (32.0-36.5); RED BLOOD COUNT 3.62 10^6/uL (4.00-5.40)
[2021-06-12 14:05] LABS: PLATELET COUNT, AUTOMATED 89 10^3/uL (150-450)
[2021-06-12 14:32] LABS: ALT/SGPT 44 U/L (12-78); BILIRUBIN,TOTAL 0.2 MG/DL (0.2-1.0); CREATININE FOR GFR 0.68 MG/DL (0.55-1.30); GLOMERULAR FILTRATION RATE > 60.0 (>60); LDH LACTATE DEHYDROGENASE 304 U/L (84-246); URIC ACID 5.7 MG/DL (2.6-6.0)
--- NOTE | 2021-06-12 15:10 | IPNPDOC ---
Text Note Date of Service The patient was seen on 06/12/21. NOTE PO Dr Caruso aware of pt status and platelet count No need for further f/u at this time VS,Christina, I+O VS, Christina, I+O Laboratory Tests 06/12/21 07:50 06/12/21 10:01 06/12/21 13:33 Vital Signs Date Time Temp Pulse Resp B/P (MAP) Pulse Ox O2 Delivery O2 Flow Rate FiO2 06/12/21 14:00 98.9 94 132/72 (92) 98 06/12/21 10:08 18 Room Air I&O- Last 24 Hours up to 6 AM 06/12/21 06:00 Intake Total 847 ml Output Total 1650 ml Balance -803 ml Aisha Pereira CNM Jun 12, 2021 15:10
[2021-06-12] MEDS: IBUPROFEN 800 MG TAB PO SCH (16:38)
[2021-06-12 18:00] VITALS: BP 150/87
[2021-06-12] MEDS: PERCOCET 5MG/325MG TAB PO PRN (18:36)
[2021-06-12 23:00] VITALS: BP 135/85
[2021-06-13] MEDS: IBUPROFEN 800 MG TAB PO SCH ×2 (01:02→09:46)
[2021-06-13 02:00] VITALS: BP 122/55
[2021-06-13] MEDS: PERCOCET 5MG/325MG TAB PO PRN (03:20)
[2021-06-13 06:00] VITALS: BP 152/73
[2021-06-13] MEDS: PRENATAL VITAMINS CHEWABLE TABLET PO SCH (09:45)
[2021-06-13] MEDS: DOCUSATE SODIUM 100MG CAPSULE PO SCH (09:46)
[2021-06-13 10:14] VITALS: BP 127/60
--- NOTE | 2021-06-13 10:18 | DS.PDOC ---
Discharge Summary General Date of Admission Jun 10, 2021 at 16:54 Date of Discharge Jun 13, 2021 Discharge Summary PROCEDURES PERFORMED DURING STAY: section. ADMITTING DIAGNOSES: 1. 41 weeks, labor induction. DISCHARGE DIAGNOSES: 1. Delivered. COMPLICATIONS/CHIEF COMPLAINT: LABOR. HISTORY OF PRESENT ILLNESS: 25-year-old G1, P0 female at 41 weeks gestation presents for induction of labor.. HOSPITAL COURSE: 25-year-old G1, P0 female at 41 weeks gestation presents for induction of labor. She received misoprostol for augmentation. She made slow progress. She is eventually diagnosed with arrest of dilation. 06/11/2021 she underwent primary section for an 8 pound 15 ounce male infant. There were no complications. Her postoperative course was unremarkable. She had adequate return of bladder bowel function. She was deemed stable for discharge on postop day #2. DISCHARGE MEDICATIONS: Please see below. ALLERGIES: Please see below. PHYSICAL EXAMINATION ON DISCHARGE: VITAL SIGNS: Please see below. GENERAL: NAD HEENT: NCAT CARDIOVASCULAR EXAMINATION: RRR RESPIRATORY EXAMINATION: CTA ABDOMINAL EXAMINATION: Nontender, dressing clean dry and intact LABORATORY DATA: Please see below. PROGNOSIS: Good ACTIVITY: As tolerated. DIET: Rec DISCHARGE PLAN: Home DISCHARGE INSTRUCTIONS: 1. Discharge home 2. Instructions reviewed 3. Remove dressing day 5 postop DISCHARGE CONDITION: Stable. TIME SPENT ON DISCHARGE: 10 minutes. Vital Signs/I&Os Vital Signs Date Time Temp Pulse Resp B/P (MAP) Pulse Ox O2 Delivery O2 Flow Rate FiO2 06/13/21 06:00 97.8 91 20 152/73 (99) 97 Room Air I&O- Last 24 Hours up to 6 AM 06/13/21 06:00 Output Total 600 ml Balance -600 ml Laboratory Data Labs 24H Laboratory Tests 2 06/12/21 13:33: Nucleated Red Blood Cells % (auto) 0.0, Glomerular Filtration Rate > 60.0, Uric Acid 5.7, Total Bilirubin 0.2, Aspartate Amino Transf (AST/SGOT) 29, Alanine Aminotransferase (ALT/SGPT) 44, Lactate Dehydrogenase 304H CBC/BMP Laboratory Tests 06/12/21 13:33 Discharge Medications Scheduled Ibuprofen (Ibuprofen) 800 Mg Tablet, 800 MG PO Q8H No.137/Iron/Folic Acd ( Vitamin Tablet) 1 Each Tablet, 1 TAB PO DAILY, (Reported) Scheduled PRN Calcium Carbonate (Tums) 200 Mg Tab.chew, 500 MG PO for HEARTBURN, (Reported) Oxycodone/Acetaminophen (Oxycodone-Acetaminophen 5-325) 1 Each Tablet, 1 TAB PO Q4H PRN for MODERATE PAIN (PS 5-7) Allergies Coded Allergies: SEASONAL ALLERGIES (Verified Allergy, Mild, 05/13/21) PEYTON DAMON MD Jun 13, 2021 10:18
== END 2021-06-13 13:25 | disposition home or self-care (01) | DRG 540 ==
LOC: M LDO 14:41 → M LDI 16:54 → M OBS 06-11 17:46
PROVIDERS: ADMIT Advanced Practice Midwife; ATTEND Obstetrics & Gynecology
PROC: 3E0P7GC Introduction of Other Therapeutic Substance into Female Reproductive, Via Natural or Artificial Opening (ICD-10-PCS; 2021-06-10)
PROC: 10D00Z1 Extraction of Products of Conception, Low, Open Approach (ICD-10-PCS; principal; 2021-06-11 14:00)
DX: O48.0 Post-term pregnancy (principal); O41.03X0 Oligohydramnios, third trimester, not applicable or unspecified; Z3A.41 41 weeks gestation of pregnancy; Z37.0 Single live birth; O99.824 Streptococcus B carrier state complicating childbirth; O62.0 Primary inadequate contractions; O99.13 Other diseases of the blood and blood-forming organs and certain disorders involving the immune mechanism complicating the puerperium; D69.6 Thrombocytopenia, unspecified

== ENCOUNTER → 2022-08-23 | Outpatient (CLI) | payer OTHER ==
[~2022-08-23] MED LIST changes: +ACET-897 PO; +GASTROGRAFIN SOLUTION 30ML As Ordered ONE; +IBUP80TA PO; +PERCOCET PO; +TUMS500C PO
== END ==
LOC: M RAD 09:26
PROVIDERS: ATTEND Specialist
DX: R10.2 Pelvic and perineal pain (principal)

== ENCOUNTER → 2023-03-24 | Outpatient (CLI) | payer OTHER ==
[~2023-03-24] MED LIST changes: -GASTROGRAFIN SOLUTION 30ML As Ordered ONE
[2023-03-24 18:17] LABS: HEMATOCRIT 36.3 % (36.0-47.0); HEMOGLOBIN 12.1 g/dl (12.0-15.5); MEAN CORPUSCULAR HEMOGLOBIN 29.3 pg (27.0-33.0); MEAN CORPUSCULAR HGB CONC 33.3 g/dl (32.0-36.5); MEAN CORPUSCULAR VOLUME 87.9 fl (80.0-96.0); PLATELET COUNT, AUTOMATED 194 10^3/uL (150-450); RED BLOOD COUNT 4.13 10^6/uL (4.00-5.40); WHITE BLOOD COUNT 7.6 10^3/uL (4.0-10.0)
[2023-03-24 19:17] LABS: HIV 1&2 SCREEN NEGATIVE (NEGATIVE)
[2023-03-24 19:26] LABS: HEPATITIS C VIRUS ABY INDEX 0.13 INDEX (<0.8)
[2023-03-24 21:02] LABS: GC DNA AMPLIFICATION NEGATIVE (NEGATIVE)
== END ==
LOC: M PLALAB 15:36
PROVIDERS: ATTEND Obstetrics & Gynecology
DX: O34.211 Maternal care for low transverse scar from previous cesarean delivery (principal)

== ENCOUNTER → 2023-04-20 | Outpatient (CLI) | payer OTHER | LOC: M WHC 13:15 | PROVIDERS: ATTEND Obstetrics & Gynecology | DX: O34.211 Maternal care for low transverse scar from previous cesarean delivery (principal); Z36.2 Encounter for other antenatal screening follow-up; Z3A.19 19 weeks gestation of pregnancy ==

== ENCOUNTER → 2023-06-20 | Outpatient (CLI) | payer OTHER | LOC: M WHC 14:26 | PROVIDERS: ATTEND Advanced Practice Midwife | DX: Z34.82 Encounter for supervision of other normal pregnancy, second trimester (principal); Z3A.27 27 weeks gestation of pregnancy ==

== ENCOUNTER → 2023-06-21 | Outpatient (CLI) | payer OTHER ==
[2023-06-21 18:06] LABS: HEMOGLOBIN 11.7 g/dl (12.0-15.5); MEAN CORPUSCULAR HEMOGLOBIN 28.7 pg (27.0-33.0); MEAN CORPUSCULAR HGB CONC 32.5 g/dl (32.0-36.5); MEAN CORPUSCULAR VOLUME 88.5 fl (80.0-96.0); PLATELET COUNT, AUTOMATED 187 10^3/uL (150-450); RED BLOOD COUNT 4.07 10^6/uL (4.00-5.40); WHITE BLOOD COUNT 7.1 10^3/uL (4.0-10.0)
== END ==
LOC: M PLALAB 15:15
PROVIDERS: ATTEND Advanced Practice Midwife
DX: Z34.82 Encounter for supervision of other normal pregnancy, second trimester (principal)

== ENCOUNTER → 2023-06-21 | Outpatient (CLI) | payer OTHER | LOC: M PLALAB 15:17 | PROVIDERS: ATTEND Advanced Practice Midwife | DX: Z34.93 Encounter for supervision of normal pregnancy, unspecified, third trimester (principal) ==

== ENCOUNTER 2023-06-23 09:15 | Outpatient (CLI) | payer OTHER ==
[~2023-06-23] VITALS: Ht 154.9 cm; Wt 93.8 kg
[2023-06-23 09:38] VITALS: BP 145/75
[2023-06-23 09:53] VITALS: BP 146/76
[2023-06-23 10:22] LABS: HEMATOCRIT 35.6 % (36.0-47.0); HEMOGLOBIN 11.9 g/dl (12.0-15.5); MEAN CORPUSCULAR HEMOGLOBIN 28.6 pg (27.0-33.0); MEAN CORPUSCULAR HGB CONC 33.4 g/dl (32.0-36.5); MEAN CORPUSCULAR VOLUME 85.6 fl (80.0-96.0); PLATELET COUNT, AUTOMATED 185 10^3/uL (150-450); RED BLOOD COUNT 4.16 10^6/uL (4.00-5.40); WHITE BLOOD COUNT 8.7 10^3/uL (4.0-10.0)
[2023-06-23] MEDS ORDERED: HOME MED LIST COMPLETE! XX SCH (10:40)
[2023-06-23 10:54] VITALS: BP 125/73
[2023-06-23 11:05] LABS: URIC ACID 4.2 MG/DL (3.1-7.8)
[2023-06-23 11:07] LABS: LDH LACTATE DEHYDROGENASE 167 U/L (120-246)
[2023-06-23 11:08] LABS: ALT/SGPT 15 U/L (7.0-40); AST/SGOT 8 U/L (<34); BILIRUBIN,TOTAL 0.3 MG/DL (0.3-1.2); CREATININE FOR GFR 0.42 MG/DL (0.55-1.30); GLOMERULAR FILTRATION RATE > 60.0 (>60)
[2023-06-23 11:15] LABS: APPEARANCE, URINE CLEAR (CLEAR); BACTERIA, URINE AUTO NEGATIVE (NEGATIVE); BILIRUBIN, URINE AUTO NEGATIVE (NEGATIVE); BLOOD, URINE BLOOD NEGATIVE (NEGATIVE); COLOR, URINE YELLOW (YELLOW); GLUCOSE, URINE (UA) AUTO NEGATIVE (NEGATIVE); KETONE, URINE AUTO NEGATIVE (NEGATIVE); LEUKOCYTE ESTERASE, URINE AUTO NEGATIVE (NEGATIVE); NITRITE, URINE AUTO NEGATIVE (NEGATIVE); PROTEIN, URINE AUTO NEGATIVE (NEGATIVE); RBC, URINE AUTO 0 /HPF (0-3); SPECIFIC GRAVITY URINE AUTO 1.011 (1.002-1.035); SQUAMOUS EPITHELIAL CELL UR AU 1 /HPF (0-6); UROBILINOGEN, URINE AUTO 0.2 mg/dL (0.0-2.0); WBC, URINE AUTO 1 /HPF (0-3)
[2023-06-23 11:36] LABS: TOTAL PROTEIN,RANDOM URINE 7.8 MG/DL (0.0-14.0)
[2023-06-23 11:41] LABS: CREATININE,RANDOM URINE 57.8 MG/DL
[2023-06-23 12:30] VITALS: BP 121/73
== END 2023-06-23 12:55 | disposition home or self-care (01) ==
LOC: M LDO 09:15
PROVIDERS: ATTEND Obstetrics & Gynecology
DX: O26.893 Other specified pregnancy related conditions, third trimester (principal); M54.9 Dorsalgia, unspecified; O34.218 Maternal care for other type scar from previous cesarean delivery; Z3A.28 28 weeks gestation of pregnancy
CPT/HCPCS: 36415; 59025; 76815; 76819; 76820; 81001; 82247; 82570; 83615; 84156; 84450; 84460; 84550; 85027; G0463

== ENCOUNTER 2023-06-24 06:21 | Outpatient (CLI) | payer OTHER ==
[~2023-06-24] VITALS: Ht 154.9 cm; Wt 93.7 kg
[2023-06-24 06:47] VITALS: BP 143/85
[2023-06-24 07:58] VITALS: BP 137/71
== END 2023-06-24 08:05 | disposition home or self-care (01) ==
LOC: M LDO 06:21
PROVIDERS: ATTEND Obstetrics & Gynecology
DX: O26.893 Other specified pregnancy related conditions, third trimester (principal); M54.50 Low back pain, unspecified; Z3A.28 28 weeks gestation of pregnancy; O34.218 Maternal care for other type scar from previous cesarean delivery

== ENCOUNTER 2023-08-02 07:23 | Outpatient (CLI) | payer OTHER, BC ==
[~2023-08-02] VITALS: Ht 154.9 cm; Wt 97.7 kg
== END 2023-08-02 10:05 | disposition home or self-care (01) ==
LOC: M LDO 07:23
PROVIDERS: ATTEND Obstetrics & Gynecology
DX: O36.8130 Decreased fetal movements, third trimester, not applicable or unspecified (principal); O34.218 Maternal care for other type scar from previous cesarean delivery; Z3A.34 34 weeks gestation of pregnancy
CPT/HCPCS: 59025; 76815; 76819; 76820; G0463

== ENCOUNTER → 2023-08-11 | Outpatient (CLI) | payer BC | LOC: M WHC 06:40 | PROVIDERS: ATTEND Obstetrics & Gynecology | DX: O26.843 Uterine size-date discrepancy, third trimester (principal) ==

== ENCOUNTER → 2023-08-17 | Outpatient (REF) | payer BC | LOC: M SFHCWAGY 16:58 | PROVIDERS: ATTEND Specialist | DX: Z34.82 Encounter for supervision of other normal pregnancy, second trimester (principal) ==

== ENCOUNTER 2023-08-25 06:22 | Outpatient (CLI) | payer BC ==
[~2023-08-25] VITALS: Ht 154.9 cm; Wt 99.7 kg
[2023-08-25 06:46] VITALS: BP 117/68
== END 2023-08-25 07:06 | disposition home or self-care (01) ==
LOC: M LDO 06:22
PROVIDERS: ATTEND Advanced Practice Midwife
DX: O47.1 False labor at or after 37 completed weeks of gestation (principal); Z3A.37 37 weeks gestation of pregnancy; O34.219 Maternal care for unspecified type scar from previous cesarean delivery
CPT/HCPCS: 59025; G0463

== ENCOUNTER 2023-09-18 07:11 | Outpatient (CLI) | payer BC ==
[~2023-09-18] VITALS: Ht 154.9 cm; Wt 102.7 kg
[2023-09-18 07:30] VITALS: BP 141/82
== END 2023-09-18 08:33 ==
LOC: M LDO 07:11
PROVIDERS: ATTEND Obstetrics & Gynecology
DX: O47.1 False labor at or after 37 completed weeks of gestation (principal); Z3A.40 40 weeks gestation of pregnancy
CPT/HCPCS: 59025; G0463